=== PATIENT | female | born 1980 | race Caucasian/White ===

== ENCOUNTER 2021-06-14 21:44 | Emergency (ER) | payer OTHER ==
[2021-06-14] MEDS ORDERED: ZPAK PO (22:43)
[2021-06-14] MEDS ORDERED: VENTOLIN HFA18 GM INH (22:43)
== END 2021-06-14 22:51 | disposition home or self-care (01) ==
LOC: FER 21:44
DX: J40 Bronchitis, not specified as acute or chronic (principal); F17.200 Nicotine dependence, unspecified, uncomplicated; Z88.0 Allergy status to penicillin
CPT/HCPCS: 71101; 93005; J1885

== ENCOUNTER 2021-06-28 18:46 | Emergency (ER) | payer OTHER ==
[~2021-06-28 18:46] MED LIST: VENTOLIN HFA18 GM INH; ZPAK PO
== END 2021-06-28 20:11 | disposition home or self-care (01) ==
LOC: FER 18:46
DX: S30.0XXA Contusion of lower back and pelvis, initial encounter (principal); J45.909 Unspecified asthma, uncomplicated; Z88.8 Allergy status to other drugs, medicaments and biological substances; Z88.0 Allergy status to penicillin; W19.XXXA Unspecified fall, initial encounter
CPT/HCPCS: 72220

== ENCOUNTER 2021-12-07 17:34 | Emergency (ER) | payer OTHER ==
[2021-12-07 18:35] LABS: BASOPHIL 0.8 % (0-2); EOSINOPHIL 1.6 % (0-5); HCT 46.8 % (37.0-47.0); HGB 15.6 g/dl (12.5-16.0); LYMPHOCYTE 27.6 % (15-48); MCH 29.7 pg (25.0-31.0); MCHC 33.3 g/dL (32.0-36.0); MPV 8.3 fL (6.0-9.5); NEUTROPHIL 61.6 % (41-80); NRBC 0; PLT 328 K/uL (150-400); RBC 5.26 M/uL (4.20-5.40); RDW 13.5 % (11.5-14.0); WBC 14.2 K/uL (4.0-10.5)
[2021-12-07 18:51] LABS: BILIRUBIN NEGATIVE (NEGATIVE); BLOOD TRACE-INTACT Ery/uL (NEGATIVE); CLARITY CLEAR (CLEAR); COLOR YELLOW (YELLOW); GLUCOSE (U) NORMAL (NORMAL); LEUKOCYTES NEGATIVE Leu/uL (NEGATIVE); NITRITE NEGATIVE (NEGATIVE); PROTEIN NEGATIVE (NEGATIVE); UROBILINOGEN 0.2 mg/dL (0.2-1.0)
[2021-12-07 19:01] LABS: BUN/CREAT RATIO (CALC) 12.3 RATIO; CREATININE 0.73 mg/dL (0.51-0.95); POTASSIUM 3.9 mmol/L (3.5-5.1)
[2021-12-07 19:11] LABS: CORONAVIRUS 2019 SARS-COV-2 NEGATIVE (NEGATIVE); INFLUENZA A NAA NEGATIVE (NEGATIVE)
== END 2021-12-07 19:24 | disposition left against medical advice (07) ==
LOC: FER 17:34
PROVIDERS: Nurse Practitioner Family
DX: M94.0 Chondrocostal junction syndrome [Tietze] (principal); F17.210 Nicotine dependence, cigarettes, uncomplicated; Z88.0 Allergy status to penicillin; Z53.29 Procedure and treatment not carried out because of patient's decision for other reasons; Z20.822 Contact with and (suspected) exposure to COVID-19
CPT/HCPCS: 36415; 71046; 80048; 81001; 85025; U0002